=== PATIENT | female | born 1975 | race Hispanic/Latino ===

== ENCOUNTER 2020-09-21 15:29 | Emergency (ER) | payer SELFPAY ==
--- NOTE | 2020-09-21 15:58 | Event Note ---
ED Screening Note Date of service: 09/21/20 Time: 15:57 ED Screening Note: Patient complains of racing heart and palpitations x today Denies chest pain or shortness of breath This initial assessment/diagnostic orders/clinical plan/treatment(s) is/are subject to change based on patients health status, clinical progression and re- assessment by fellow clinical providers in the ED. Further treatment and workup at subsequent clinical providers discretion. Patient/guardian urged not to elope from the ED as their condition may be serious if not clinically assessed and managed. Initial orders include: Labs EKG Chest Xr
[2020-09-21 16:01] VITALS: BP 118/83
[2020-09-21 17:40] LABS: Basophils % (Auto) 0.3 % (0.0-1.8); Eosinophils % (Auto) 0.1 % (0.0-4.3); Hematocrit 44.5 % (30.3-42.9); Hemoglobin 15.3 gm/dl (10.1-14.3); Lymphocytes # (Auto) 2.7 K/mm3 (1.2-5.4); Lymphocytes % (Auto) 22.8 % (13.4-35.0); Mean Corpuscular HGB Conc 34 % (30-34); Mean Corpuscular Volume 88 fl (79-97); Monocytes # (Auto) 0.5 K/mm3 (0.0-0.8); Monocytes % (Auto) 4.4 % (0.0-7.3); Platelet Count 326 K/mm3 (140-440); Red Blood Count 5.09 M/mm3 (3.65-5.03); Red Cell Distribution Width 12.6 % (13.2-15.2)
[2020-09-21 18:01] LABS: Alanine Aminotransferase 8 units/L (7-56); Albumin 4.5 g/dL (3.9-5); Blood Urea Nitrogen 8 mg/dL (7-17); Calcium 9.7 mg/dL (8.4-10.2); Hemolysis Index 18
[2020-09-21 18:16] LABS: BUN/Creatinine Ratio 13
--- NOTE | 2020-09-21 20:12 | Emergency Department Report ---
ED General Adult HPI - General Chief complaint: Arrhythmia/Palpitations Stated complaint: RACING HEART/PALPITATIONS PUI?: No Time Seen by Provider: 09/21/20 15:40 Source: patient, EMS (EMS documentation is reviewed and appreciated), RN notes reviewed Mode of arrival: Ambulatory Limitations: No Limitations - History of Present Illness Initial comments: The patient was evaluated in the emergency department for symptoms described in the history of present illness. He/she was evaluated in the context of the global COVID-19 pandemic, which necessitated consideration that the patient might be at risk for infection with the virus that causes COVID-19. Institutional protocols and algorithms that pertain to the evaluation of pa tients at risk for COVID-19 are in a state of rapid change based on information released by regulatory bodies including the CDC and federal and state organizations. These policies and algorithms were followed during the patient's care in the emergency department. Please note that these policies, procedures and recommendations changed on a rapid basis. During the history and physical examination, I am chaperoned by KEISHA Jama Patient is a 45-year-old female. She is not known to myself previously. She states that she is not and has not delivered within the past 6 weeks She does not take control tablets, oral contraceptives, and denies DVT and pulmonary embolism risk factors. She does not have a local primary care doctor, and denies chronic medical conditions that she is aware of. She presents to the ER today with a complaint of nontraumatic chest wall pressure, and a sensation of "icy hot", on her left cheek, right cheek, and left neck, and left shoulder, and a sensation of intermittent heart racing and palpitations. This has been going on intermittently for about a week. She has a mild headache which is not sudden or thunderclap in nature. There is no loss of vision. There is no abdominal pain. There is no exertional shortness of breath. There is no vomiting. There is no hematemesis. There is no bright red blood per rectum. Patient states that she was seen at [facility] a few days ago, for similar symptoms, had unremarkable CT scan of the brain, and unremarkable laboratory studies. Symptoms are intermittent, do not radiate anywhere, worsened at night while sleeping, and "when I get anxiety about it." Patient also endorses a history of anxiety, and secondary to not having insurance, has not been able to follow-up with counseling and therapy. She states that she feels like she has been having "really bad panic attacks." She states these panic attacks are similar to her prior episodes of panic attacks. -: Gradual, days(s) Location: head, face, mouth, chest Radiation: other Quality: other Consistency: other Improves with: other Worsens with: other Associated Symptoms: other - Related Data Allergies Allergy/AdvReac Type Severity Reaction Status Date / Time codeine Allergy Unknown Verified 09/21/20 15:56 ED Review of Systems ROS: Stated complaint: RACING HEART/PALPITATIONS Other details as noted in HPI Constitutional: malaise, weakness, other (Negative loss of taste. Negative loss of smell). denies: chills, fever Eyes: denies: vision change ENT: denies: epistaxis Respiratory: denies: wheezing Cardiovascular: chest pain, palpitations Gastrointestinal: denies: nausea, vomiting, hematemesis, melena, hematochezia Genitourinary: denies: dysuria Musculoskeletal: myalgia Neurological: headache, weakness. denies: numbness, paresthesias, confusion, abnormal gait, vertigo Psychiatric: anxiety Hematological/Lymphatic: denies: easy bleeding ED Past Medical Hx - Past Medical History Previous Medical History?: No - Surgical History Additional Surgical History: tubal ligation - Social History Smoking Status: Never Smoker ED Physical Exam - General Limitations: No Limitations General appearance: alert, anxious, obese - Head Head exam: Present: atraumatic, normocephalic - Eye Eye exam: Present: normal appearance, PERRL, EOMI, other (Visual acuity intact to finger counting, color perception, reading at a close distance). Absent: nystagmus - ENT ENT exam: Present: normal exam, normal orophraynx, mucous membranes moist, normal external ear exam - Neck Neck exam: Present: normal inspection, full ROM. Absent: tenderness, meningismus - Respiratory Respiratory exam: Present: normal lung sounds bilaterally, chest wall tenderness. Absent: respiratory distress, wheezes, rales, rhonchi, stridor - Cardiovascular Cardiovascular Exam: Present: regular rate, normal rhythm, normal heart sounds. Absent: bradycardia, tachycardia, irregular rhythm, systolic murmur, diastolic murmur, rubs, gallop - GI/Abdominal GI/Abdominal exam: Present: soft. Absent: distended, tenderness, guarding, rebound, rigid, pulsatile mass - Extremities Exam Extremities exam: Present: normal inspection, full ROM, other (2+ pulses noted in the bilateral upper and lower extremities. There is no palpable cord. ne gative Homans sign. Muscular compartments are soft. The pelvis is stable.). Absent: pedal edema, calf tenderness - Back Exam Back exam: Present: normal inspection, full ROM. Absent: tenderness, CVA tenderness (R), CVA tenderness (L), paraspinal tenderness, vertebral tenderness - Neurological Exam Neurological exam: Present: alert (Able to and 4+4, subtract 100-7, remember 3 out of 3 words at 0 minutes and 5-minute), oriented X3, other (There is no facial droop. The tongue is midline. Extraocular movements are intact bilaterally. There is 5 out of 5 strength in bilateral upper and lower extremities. Sensation is intact to light touch bilateral upper and lower extremities. There is no past-pointing. There is no pronator drift.). Absent: motor sensory deficit - Psychiatric Psychiatric exam: Present: anxious - Skin Skin exam: Present: warm, dry, intact, normal color. Absent: rash ED Course Vital Signs 09/21/20 15:56 Temperature 98.0 F Pulse Rate 96 H Respiratory 18 Rate Blood Pressure 118/83 O2 Sat by Pulse 96 Oximetry - Reevaluation(s) Reevaluation #1: 09/21/20 22:14 Reassessed. No acute distress. TSH within normal limits. Troponin negative x2. EKG unchanged x2. Patient eating crackers. Suitable to follow-up with outpatient cardiology. ED Medical Decision Making - Lab Data Result diagrams: 09/21/20 15:41 09/21/20 15:41 Vital Signs 09/21/20 15:56 Temperature 98.0 F Pulse Rate 96 H Respiratory 18 Rate Blood Pressure 118/83 O2 Sat by Pulse 96 Oximetry Lab Results 09/21/20 09/21/20 09/21/20 Range/Units 15:41 15:41 15:41 WBC 11.8 H (4.5-11.0) K/mm3 RBC 5.09 H (3.65-5.03) M/mm3 Hgb 15.3 H (10.1-14.3) gm/dl Hct 44.5 H (30.3-42.9) % MCV 88 (79-97) fl MCH 30 (28-32) pg MCHC 34 (30-34) % RDW 12.6 L (13.2-15.2) % Plt Count 326 (140-440) K/mm3 Lymph % (Auto) 22.8 (13.4-35.0) % [place] % (Auto) 4.4 (0.0-7.3) % Eos % (Auto) 0.1 (0.0-4.3) % Baso % (Auto) 0.3 (0.0-1.8) % Lymph # (Auto) 2.7 (1.2-5.4) K/mm3 [place] # (Auto) 0.5 (0.0-0.8) K/mm3 Eos # (Auto) 0.0 (0.0-0.4) K/mm3 Baso # (Auto) 0.0 (0.0-0.1) K/mm3 Seg Neutrophils % 72.4 H (40.0-70.0) % Seg Neutrophils # 8.6 H (1.8-7.7) K/mm3 Sodium 139 (137-145) mmol/L Potassium 3.9 (3.6-5.0) mmol/L Chloride 101.8 (98-107) mmol/L Carbon Dioxide 27 (22-30) mmol/L Anion Gap 14 mmol/L BUN 8 (7-17) mg/dL Creatinine 0.6 (0.6-1.2) mg/dL Estimated GFR > 60 ml/min BUN/Creatinine Ratio 13 % Glucose 94 (65-100) mg/dL Calcium 9.7 (8.4-10.2) mg/dL Magnesium 2.30 (1.7-2.3) mg/dL Total Bilirubin 0.70 (0.1-1.2) mg/dL AST 15 (5-40) units/L ALT 8 (7-56) units/L Alkaline Phosphatase 63 (35-129) units/L Troponin T < 0.010 (0.00-0.029) ng/mL Total Protein 7.7 (6.3-8.2) g/dL Albumin 4.5 (3.9-5) g/dL Albumin/Globulin Ratio 1.4 % - EKG Data -: EKG Interpreted by Tx EKG shows normal: sinus rhythm Rate: normal - EKG Data When compared to previous EKG there are: previous EKG unavailable 09/21/20 21:43 EKG #1 shows a sinus rhythm, 81 bpm, left axis deviation, left anterior fascicular block, QTC is prolonged. Abnormal EKG. Not a STEMI. EKG #2 appears to be unchanged from prior. Neither EKG is consistent with a STEMI. - Medical Decision Making Differential diagnosis, including but not limited to: Anxiety, electrolyte derangement, costochondritis, thyroid derangement Assessment and plan: 45-year-old female, who is afebrile, with reassuring vital signs, clinically sober, with a GCS of 15, NIH score of 0, not currently tachycardic, tachypneic or hypoxic, who denies DVT and pulmonary embolism risk factors, low risk by Wells criteria, PERC negative, with a number of nonspecific complaints, including feeling heat and cold on multiple sides of her face and neck, negative CT scan of the brain at another hospital a few days ago, unremarkable neurologic examination, EKG unchanged x2, laboratory studies benign and unremarkable, saturating well on room air, without hypoxia, or focal pulmonary findings. Patient does not appear to have an emergent medical condition present at this time. Patient at low risk for major adverse cardiac event as per heart score. Patient advised of the aforementioned. Counseled patient that she is suitable to follow-up with an outpatient primary care doctor or senior technical business analyst for further outpatient evaluation for history of complaint of chest pressure and palpitations. Patient observed in this ER for hours without clinical decompensation. As per this institutions policy, procedure and protocol, Facesheet will be transmitted to [facility] cardiology, and the patient should be contacted by this cardiology group to follow-up as an outpatient, to complete an outpatient cardiac risk ratification and evaluation. Critical care attestation.: If time is entered above; I have spent that time in minutes in the direct care of this critically ill patient, excluding procedure time. ED Disposition Clinical Impression: History of palpitations, Chest discomfort Disposition: DC-01 TO HOME OR SELFCARE Is pt being admited?: No Does the pt Need Aspirin: No Condition: Good Additional Instructions: Recommend that patient avoid consumption of alcohol, tobacco, smoke products, caffeine energy drinks and stimulants. Recommend that patient get at least 7 to 8 hours of good quality uninterrupted sleep each night. Recommend that patient avoid using cell phone, tablet, computer devices and video games prior to going to sleep. Recommend that patient exercise on a regular basis, as physically tolerated. Recommend that patient follow-up with her primary care doctor or senior technical business analyst within the next 3 to 5 days. Patient's information has been transmitted to [facility] cardiology, where the patient should receive a call to follow-up in the next few days. However, we do recommend that the patient call up at this cardiology group within the next 24 hours let the office know that the patient was seen here in the emergency room for chest pressure and palpitations, and that it is advised that the patient follow-up with the cardio logy group as an outpatient. Patient may take [id number] acetaminophen, alternating with over -the-counter ibuprofen as needed for pain. Please return to the emergency room right away with new pain, worsened pain, migration of pain, projectile vomiting, change in mental status, confusion, inability to tolerate liquid feeds, new, worsened or different symptoms and is not on initial emergency room evaluation. Referrals: PAUAL PRETTY MD [Staff Physician] - 3-5 Days [facility] [Provider Group] - 3-5 Days
[2020-09-21] MEDS ORDERED: ACETAMINOPHEN 325 MG TAB PO ONE (20:43)
[2020-09-21] MEDS ORDERED: IBUPROFEN 400 MG TAB PO ONE (20:43)
[2020-09-21] MEDS ORDERED: hydrOXYzine PAMOATE 25 MG CAP PO ONE (21:43)
== END 2020-09-21 22:30 | disposition home or self-care (01) ==
LOC: ED 15:29
DX: R00.2 Palpitations (principal); R07.89 Other chest pain; Z98.51 Tubal ligation status; Z88.6 Allergy status to analgesic agent
CPT/HCPCS: 36415; 80053; 82550; 83735; 84443; 84484; 85025; 93005; 99283; Q0177